=== PATIENT | female | born 2000 | race Caucasian/White ===

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

== ENCOUNTER 2021-11-28 09:56 | Emergency (ER) | payer MEDICAID ==
[~2021-11-28] VITALS: Ht 160 cm; Wt 88.5 kg
[2021-11-28 11:02] VITALS: BP 136/88
--- NOTE | 2021-11-28 11:07 | NUR ---
LOBBY Addendum: 11/28/21 at 1107 by [email or web address] HANDED ON URINE CUP.
--- NOTE | 2021-11-28 13:40 | NUR ---
PATIENT LEFT WITHOUT BEING SEEN BY DR. CARDENAS. NO FURTHER CARE PROVIDED FOR PATIENT. 1350-2ND CALL IN ER [facility] N/A 1418-3ND MIKE IN [facility] N/A
== END 2021-11-28 13:40 | disposition left against medical advice (07) ==
LOC: MED 09:56
DX: R11.2 Nausea with vomiting, unspecified (principal); R19.7 Diarrhea, unspecified; R51.9 Headache, unspecified; Z53.21 Procedure and treatment not carried out due to patient leaving prior to being seen by health care provider